=== PATIENT | male | born 1960 | race Caucasian/White ===

== ENCOUNTER → 2016-03-31 | Outpatient (CLI) | payer OTHER ==
--- NOTE | 2016-03-31 09:50 | US ---
EXAMINATION TYPE: US liver DATE OF EXAM: 03/31/2016 7:26 AM COMPARISON: CT on PACS January 23, 2016 CLINICAL HISTORY: abnormal CT. Liver lesions EXAM MEASUREMENTS: Liver Length: 13.7 cm Gallbladder Wall: 0.4 cm CBD: 0.4 cm Right Kidney: 10.8 x 5.1 x 5.4 cm ANATOMY: TECHNOLOGIST IMPRESSION: Pancreas: Obscured due to midline bowel gas Gallbladder: no shadowing mobile stones seen, appears contracted with a thickened wall, patient stat es he has not eaten in 8 hours. Evidence for sonographic Martinez's sign: No CBD: Within normal limits Right Kidney: No hydronephrosis or masses seen Liver is overall heterogeneous appearance without worrisome intrahepatic ductal dilatation. Evaluatio n for focal masses is limited due to the heterogeneity. Anteriorly there is well-defined 1.3 x 0.8 x 1.1 cm anechoic lesion with increased through transmission felt to reflect simple cyst, this likely c orresponds to CT lesion on image 23 in the right hepatic lobe. Vague more central lesion on CT measur ing roughly 1.8 x 1.0 cm on axial image 16 is not clearly identified on ultrasound. Gallbladder wall appears concentrically mildly thickened. No surrounding fluid is present. IMPRESSION: Vague lesion centrally in the liver is not clearly identified on ultrasound. It may be to o small to definitively characterize. Underlying fatty infiltration is suspected. Consider liver prot ocol multiphasic contrast-enhanced CT or MRI to further evaluate.
== END | disposition home or self-care (01) ==
LOC: RADUSWWP 06:54
PROVIDERS: ATTEND Internal Medicine
DX: D18.03 Hemangioma of intra-abdominal structures (principal)
CPT/HCPCS: 76705

== ENCOUNTER → 2016-04-15 | Outpatient (CLI) | payer OTHER ==
--- NOTE | 2016-04-16 06:53 | MR ---
EXAMINATION TYPE: MR abdomen wo/w con DATE OF EXAM: 04/15/2016 9:42 PM COMPARISON: CT abdomen and pelvis January 23, 2016. Liver ultrasound March 31, 2016 HISTORY: Abnormal CT, spots seen on liver CONTRAST: Standard multiplanar, multisequence MRI departmental protocol utilizing 17 mL intravenous MultiHance gadolinium contrast. FINDINGS: Exam is suboptimal as is degraded by patient motion. LIVER: There are several simple appearing cysts scattered throughout the liver. A central 1.3 x 1.1 c m simple appearing cyst posterior segment right hepatic lobe superiorly on image 35 series 601 is con firmed corresponding to vague hypodense lesion on CT. There is redemonstration of 9 mm simple appeari ng cyst lateral aspect anterior segment right hepatic lobe on image 31. No worrisome solid or cystic intrahepatic masses are identified. No suspicious biliary dilatation is seen. Gallbladder is felt wit hin normal limits. OTHER: Lung bases are grossly clear. The spleen, pancreas, and left adrenal gland are felt within nor mal limits. Slight thickening of right adrenal gland superiorly is stable and could reflect benign li pid rich hyperplasia as signal dropout is noted. There is no concerning renal mass or hydronephrosis seen bilaterally. There is no suspicious small or large bowel dilatation seen. No concerning abdomina l fluid collection is identified. No greater than 1 cm abdominal adenopathy is seen. Osseous structur es are intact. IMPRESSION: Some simple appearing cysts scattered throughout the liver are confirmed. No worrisome solid or cysti c intrahepatic mass is present.
== END | disposition home or self-care (01) ==
LOC: RADMRIMAIN 20:42
PROVIDERS: ATTEND Internal Medicine
DX: K76.89 Other specified diseases of liver (principal)
CPT/HCPCS: 74183; A9577

== ENCOUNTER → 2016-08-20 | Outpatient (CLI) | payer OTHER ==
--- NOTE | 2016-08-20 15:22 | NM ---
EXAMINATION TYPE: NM bone scan whole body DATE OF EXAM: 08/20/2016 COMPARISON: Chest x-ray with ribs 01/23/2016, MR 04/15/2016, CT abdomen pelvis 01/23/2016 HISTORY: Pleurodynia, right rib pain, R07.81 Delayed whole-body scanning was performed following the injection of 26.2 mCi Tc 99m MDP. Images acq uired 3.5 hours post injection. FINDINGS: The 10th and 11th rib fractures on the right that are noted on CT, MR and plain film show correspondi ng increased uptake on the bone scan. Uptake also noted at the right L1 transverse process which show s corresponding fracture. Mild uptake at the costovertebral angle of the ninth rib posteriorly on the right is likely degenerative. Mild uptake in the feet, knees, wrists, shoulders and elbows is likely degenerative. Soft tissue uptake is within normal limits. IMPRESSION: Right 10th and 11th rib fractures, additional findings above
== END | disposition home or self-care (01) ==
LOC: RADNMMAIN 10:49
PROVIDERS: ATTEND Internal Medicine
DX: S22.41XA Multiple fractures of ribs, right side, initial encounter for closed fracture (principal)
CPT/HCPCS: 78306; A9503

== ENCOUNTER 2016-08-28 18:31 | Emergency (ER) | payer OTHER ==
[2016-08-28] MEDS ORDERED: SODIUM CHLORIDE 0.9% 1,000 ML IV ONE (19:05)
--- NOTE | 2016-08-28 19:13 | ED ---
Headache HPI - General Chief Complaint: Headache Stated Complaint: Headaches Time Seen by Provider: 08/28/16 18:43 Source: RN notes reviewed Mode of arrival: ambulatory Limitations: no limitations - History of Present Illness Initial Comments: Patient is a 56-year-old male presents to the emergency room for evaluation of headache. Patient states he has had a sinus headache for the past month. Patient states he is on his second round of antibiotics prescribed by his primary care provider. Patient states he was taking Augmentin and is now currently taking Levaquin. Patient states that he still having sinus congestion and sinus headache. Patient states the headache is 8 out of 10 constant pain. Patient also states he has been taking Mucinex with no relief of symptoms. Patient states he's also had a cough. Patient does admit to smoking daily. Patient denies any chest pain. Patient denies fevers or chills. Patient denies ringing in the ears or ear pain. Patient does state he has slight throat pain from coughing. Patient denies significant abdominal pain. Patient denies nausea or vomiting. Patient denies changes in vision. Patient denies paresthesias. Patient denies weakness. Patient states it feels like a halo is around his head and is squeezing his head. - Related Data Home Medications Medication Instructions Recorded Confirmed ALPRAZolam 1 mg PO BID 05/28/15 08/28/16 traZODone HCL 300 mg PO HS 05/28/15 08/28/16 Levofloxacin [Levaquin] 500 mg PO DAILY 08/28/16 08/28/16 buPROPion HCL [Wellbutrin SR] 150 mg PO BID 08/28/16 08/28/16 guaiFENesin [Mucinex] 600 mg PO BID PRN 08/28/16 08/28/16 Previous Rx's Medication Instructions Recorded Sulfamethox-Tmp 800-160Mg [Bactrim 1 tab PO Q12HR 10 Days 08/28/16 DS 800-160 mg] Allergies Allergy/AdvReac Type Severity Reaction Status Date / Time steroids Allergy Unknown Uncoded 08/28/16 18:37 Review of Systems ROS Statement: Those systems with pertinent positive or pertinent negative responses have been documented in the HPI. ROS Other: All systems not noted in ROS Statement are negative. Past Medical History Past Medical History: No Reported History History of Any Multi-Drug Resistant Organisms: None Reported Past Surgical History: Hernia Repair, Tonsillectomy Additional Past Surgical History / Comment(s): LEFT INGUINAL HERNIA X2 Past Anesthesia/Blood Transfusion Reactions: No Reported Reaction Past Psychological History: Anxiety, Depression Smoking Status: Current every day smoker Past Alcohol Use History: None Reported Past Drug Use History: None Reported - Past Family History Mother Family Medical History: No Reported History General Exam - General Exam Comments Initial Comments: Sitting in exam room, no distress. Limitations: no limitations General appearance: alert, in no apparent distress Head exam: Present: atraumatic, normocephalic, normal inspection Eye exam: Present: normal appearance, PERRL, EOMI Pupils: Present: normal accommodation ENT exam: Present: normal exam, normal oropharynx, mucous membranes moist, TM's normal bilaterally, normal external ear exam, other (Tenderness on palpating over frontal sinus) Neck exam: Present: normal inspection Respiratory exam: Present: normal lung sounds bilaterally. Absent: respiratory distress Cardiovascular Exam: Present: regular rate, normal rhythm, normal heart sounds GI/Abdominal exam: Present: soft, normal bowel sounds. Absent: distended, tenderness, guarding, rebound, rigid Extremities exam: Present: normal inspection Back exam: Present: normal inspection Neurological exam: Present: alert, oriented X3, CN II-XII intact, normal gait Expanded Speech: Present: fluid speech Cranial nerves: EOM's Intact: Normal, Facial Sensation: Normal Sensory exam: Upper Extremity Light Touch: Normal, Lower Extremity Pin Prick: Normal Motor strength exam: RUE: 5, LUE: 5, RLE: 5, LLE: 5 Psychiatric exam: Present: normal affect, normal mood Skin exam: Present: warm, dry, intact, normal color. Absent: rash Course Vital Signs 08/28/16 08/28/16 08/28/16 18:35 20:01 20:53 Temperature 98.4 F 98.9 F Pulse Rate 90 69 73 Respiratory 20 16 16 Rate Blood Pressure 117/75 143/89 117/78 O2 Sat by Pulse 96 96 93 L Oximetry 08/28/16 21:15 Temperature 97.9 F Pulse Rate 71 Respiratory 16 Rate Blood Pressure 117/79 O2 Sat by Pulse 96 Oximetry Medical Decision Making - Medical Decision Making Patient is a 56-year-old male presents to the emergency room for evaluation of sinus headache. Sinus and brain CT show evidence for ethmoid and sphenoid sinusitis. Patient given a gram of IV Rocephin. Patient will be switched from Levaquin to Bactrim. Advised patient to follow up with ear, nose and throat specialist for further evaluation. Patient states she understands everything that was discussed with him. Return parameters discussed. Case discussed Dr. Martin. - Lab Data Result diagrams: 08/28/16 19:20 08/28/16 19:20 Lab Results 08/28/16 08/28/16 Range/Units 19:20 19:20 WBC 8.0 (3.8-10.6) k/uL RBC 5.01 (4.30-5.90) m/uL Hgb 16.1 (13.0-17.5) gm/dL Hct 46.1 (39.0-53.0) % MCV 92.1 (80.0-100.0) fL MCH 32.1 (25.0-35.0) pg MCHC 34.9 (31.0-37.0) g/dL RDW 12.8 (11.5-15.5) % Plt Count 253 (150-450) k/uL Neutrophils % 60 % Lymphocytes % 28 % Monocytes % 8 % Eosinophils % 2 % Basophils % 0 % Neutrophils # 4.8 (1.3-7.7) k/uL Lymphocytes # 2.3 (1.0-4.8) k/uL Monocytes # 0.6 (0-1.0) k/uL Eosinophils # 0.1 (0-0.7) k/uL Basophils # 0.0 (0-0.2) k/uL ESR 2 (0-15) mm/hr Sodium 143 (137-145) mmol/L Potassium 4.2 (3.5-5.1) mmol/L Chloride 110 H (98-107) mmol/L Carbon Dioxide 22 (22-30) mmol/L Anion Gap 11 mmol/L BUN 22 H (9-20) mg/dL Creatinine 1.00 (0.66-1.25) mg/dL Est GFR (MDRD) Af Amer >60 (>60 ml/min/1.73 sqM) Est GFR (MDRD) Non-Af >60 (>60 ml/min/1.73 sqM) Glucose 121 H (74-99) mg/dL Calcium 9.4 (8.4-10.2) mg/dL Total Bilirubin 0.5 (0.2-1.3) mg/dL AST 17 (17-59) U/L ALT 37 (21-72) U/L Alkaline Phosphatase 66 (38-126) U/L Total Protein 6.9 (6.3-8.2) g/dL Albumin 4.3 (3.5-5.0) g/dL - Radiology Data Radiology results: report reviewed, image reviewed Disposition Clinical Impression: Sinusitis Disposition: HOME SELF-CARE Condition: Good Instructions: Sinusitis (ED) Additional Instructions: Discontinue Levaquin. Take Bactrim as directed. Please follow up with ear, nose and throat specialist for further evaluation. If any new symptom arises or symptoms worsen, return to ER as soon as possible. Prescriptions: Sulfamethox-Tmp 800-160Mg [Bactrim DS 800-160 mg] 1 tab PO Q12HR 10 Days Referrals: Jose Manuel Martin MD [Primary Care Provider] - 1-2 days Time of Disposition: 21:03
[2016-08-28 19:31] LABS: Basophils % (A) 0 %; CH 31.6; CHCM 34.5; Eosinophils # (A) 0.1 k/uL (0-0.7); Eosinophils % (A) 2 %; HCT 46.1 % (39.0-53.0); HDW 2.24; HGB 16.1 gm/dL (13.0-17.5); Luc # (Auto) 0.16; Luc % (Auto) 2; Lymphocytes # (A) 2.3 k/uL (1.0-4.8); Lymphocytes % (A) 28 %; MCH 32.1 pg (25.0-35.0); MCHC 34.9 g/dL (31.0-37.0); MCV 92.1 fL (80.0-100.0); Mean Platelet Volume 6.6; Monocytes # (A) 0.6 k/uL (0-1.0); Monocytes % (A) 8 %; Neutrophils # (A) 4.8 k/uL (1.3-7.7); Neutrophils % (A) 60 %; RBC 5.01 m/uL (4.30-5.90); RDW 12.8 % (11.5-15.5); WBC (Perox) 8.16
[2016-08-28 19:40] LABS: ALT 37 U/L (21-72); AST 17 U/L (17-59); Alkaline Phosphatase 66 U/L (38-126); Anion Gap 11 mmol/L; Blood Urea Nitrogen 22 mg/dL (9-20); Calcium 9.4 mg/dL (8.4-10.2); Carbon Dioxide 22 mmol/L (22-30); Chloride 110 mmol/L (98-107); Glucose 121 mg/dL (74-99); Non-African American GFR(MDRD) >60 (>60 ml/min/1.73 sqM); Potassium 4.2 mmol/L (3.5-5.1); Sodium 143 mmol/L (137-145); Total Bilirubin 0.5 mg/dL (0.2-1.3); Total Protein 6.9 g/dL (6.3-8.2)
--- NOTE | 2016-08-28 19:50 | CT ---
EXAMINATION TYPE: CT brain wo con DATE OF EXAM: 08/28/2016 COMPARISON: NONE HISTORY: Patient complains of headache, dizziness, and sinus infection. CT DLP: 796.1 mGycm Automated exposure control for dose reduction was used. FINDINGS: Ventricles of normal size. There is no mass effect nor midline shift. There is no sign of intracrania l hemorrhage. There is some mucosal thickening in the ethmoid air cells. Calvarium is intact. IMPRESSION: MINIMAL ETHMOID SINUSITIS. OTHERWISE NEGATIVE UNENHANCED HEAD CT SCAN.
--- NOTE | 2016-08-28 19:52 | CT ---
EXAMINATION TYPE: CT sinus wo con DATE OF EXAM: 08/28/2016 COMPARISON: NONE HISTORY: Patient complains of headache, dizziness, and sinus infection. CT DLP: 544.7 mGycm. Automated Exposure Control for Dose Reduction was Utilized. TECHNIQUE: CT scan of the sinuses is performed without contrast, axial images are obtained, coronal r eformatted images are also reviewed. FINDINGS: Orbital margins are intact. There is mild mucosal thickening in the ethmoid air cells. There is mild mucosal thickening in the sphenoid sinus. The maxilla is intact. Orbital margins are intact. I see no bony destructive process. There is no evidence of an orbital mass. There is bilateral patency of the ostiomeatal complex. IMPRESSION: There is evidence for mild ethmoid and sphenoid sinusitis. Mild nasal turbinate hypertrop hy noted..
--- NOTE | 2016-08-28 19:55 | XR ---
EXAMINATION TYPE: XR chest 2V DATE OF EXAM: 08/28/2016 COMPARISON: NONE HISTORY: Chest congestion TECHNIQUE: Frontal and lateral views of the chest are obtained. FINDINGS: Heart and mediastinum are normal. Lungs are clear. Diaphragm is normal. Bony thorax is int act. IMPRESSION: Normal chest
[2016-08-28 20:03] VITALS: RESP 16
[2016-08-28 20:30] LABS: Erythrocyte Sedimentation Rate 2 mm/hr (0-15)
[2016-08-28 22:04] VITALS: BP 117/79; PULSE 71; TEMP 97.9
== END 2016-08-28 22:05 | disposition home or self-care (01) ==
LOC: EC 18:31
DX: J32.2 Chronic ethmoidal sinusitis (principal); J32.3 Chronic sphenoidal sinusitis; F32.9 Major depressive disorder, single episode, unspecified; F41.9 Anxiety disorder, unspecified; F17.200 Nicotine dependence, unspecified, uncomplicated; Z90.89 Acquired absence of other organs; Z88.8 Allergy status to other drugs, medicaments and biological substances; Z79.899 Other long term (current) drug therapy
CPT/HCPCS: 99284; 96365; 96361; 36415; 80053; 85652; 85025; 71020; 70450; 70486; J0696

== ENCOUNTER → 2016-10-11 | Outpatient (CLI) | payer OTHER ==
--- NOTE | 2016-10-11 08:30 | CT ---
EXAMINATION TYPE: CT sinus wo con DATE OF EXAM: 10/11/2016 COMPARISON: 08/28/2016 HISTORY: Facial pressure and pain with headaches for 3-[address] DLP: 615.9 mGycm. Automated Exposure Control for Dose Reduction was Utilized. TECHNIQUE: CT scan of the sinuses is performed without contrast, axial images are obtained, coronal r eformatted images are also reviewed. FINDINGS: There is mild ethmoid mucosal thickening, overall similar in appearance to the prior exam. Right superior nasal turbinate shanika bullosa is seen as well as osseous septa within the right maxil regino sinus. The maxillary sinuses, frontal sinuses, and mastoid air cells are well aerated. Subcentim eter osteoma is noted within the left mastoid air cells. Inspissated mucus, mild in degree, is redemo nstrated within the sphenoid sinus. Nasal septum is intact with slight leftward deviation and a left nasal spur. Mild inferior and middle nasal turbinate mucosal hypertrophy is seen, similar in degree from the prior. These findings minima lly narrow the left nasal passage. The ostiomeatal complexes are patent as are the frontal recesses. No Marie cells are noted. The globes are intact bilaterally. The examination is not optimized for evaluation of the intracrani al structures. IMPRESSION: 1. Mild persistent sphenoid and ethmoid mucosal thickening, overall similar to the prior exam. Ostiom eatal complexes and frontal recesses are patent bilaterally. 2. Slight leftward nasal septal deviation, left nasal spur, and nasal turbinate mucosal hypertrophy t hat minimally narrow the left nasal passage.
== END | disposition home or self-care (01) ==
LOC: RADCTMAIN 07:37
PROVIDERS: ATTEND Otolaryngology Plastic Surgery within the Head & Neck
DX: J34.89 Other specified disorders of nose and nasal sinuses (principal); J34.2 Deviated nasal septum
CPT/HCPCS: 70486